=== PATIENT | female | born 1955 | race Two or more races ===

== ENCOUNTER 2016-11-03 22:17 | Emergency (ER) | payer OTHER ==
[~2016-11-03] VITALS: Ht 160 cm; Wt 63.5 kg
[2016-11-03 23:26] VITALS: BP 169/99
[2016-11-03] MEDS ORDERED: LIDOCAINE 1% HCL (LOCAL ANESTH.) INJ 20ML MDV ONE (23:38)
[2016-11-03] MEDS ORDERED: LIDOCAINE 1% HCL (LOCAL ANESTH.) INJ 20ML MDV IJ ONE (23:45)
[2016-11-03] MEDS ORDERED: methylPREDNISolone SOD SUCC 125 MG/2 ML VL IM ONE (23:45)
[2016-11-03] MEDS ORDERED: TETANUS-DIPTH-ACEL PERTUSSIS 0.5ML SYRG IM ONE (23:45)
[2016-11-03] MEDS ORDERED: cefTRIAXone SOD 1,000 MG VL IM ONE (23:45)
== END 2016-11-03 23:58 | disposition home or self-care (01) ==
LOC: ER 22:17
DX: S80.262A Insect bite (nonvenomous), left knee, initial encounter (principal); I10 Essential (primary) hypertension; Y92.219 Unspecified school as the place of occurrence of the external cause; T63.301A Toxic effect of unspecified spider venom, accidental (unintentional), initial encounter; Y93.89 Activity, other specified; Y99.8 Other external cause status; R06.02 Shortness of breath
CPT/HCPCS: 96372; 99284; J0696; J2001; J2930